=== PATIENT | female | born 1975 | race Caucasian/White ===

== ENCOUNTER 2024-05-18 16:49 | Emergency (ER) | payer OTHER, SELFPAY ==
--- NOTE | ~2024-05-18 | XR_ITS ---
XR chest 2V DATE: 05/18/2024 18:19 INDICATION: Productive cough TECHNIQUE: 2 views COMPARISON: None FINDINGS: Heart size is within normal range. No hilar or mediastinal enlargement. No pulmonary infiltrate or consolidation, pleural effusion or pulmonary vascular congestion or pneumo thorax is detected. Degenerative spurring of the thoracic and lumbar spine. IMPRESSION: No active cardiopulmonary disease Reviewed, dictated and finalized at location A.
[2024-05-18 17:28] VITALS: BP 142/65; PULSE 77; RESP 18; TEMP 37.4; O2SAT 99
--- NOTE | 2024-05-18 18:05 | ED.GENADULT ---
HPI - General Adult General Chief complaint: Upper Respiratory Infection Stated complaint: Cough/Sinus Source: patient Mode of arrival: ambulatory Limitations: no limitations History of Present Illness HPI narrative: Patient presents for evaluation of sick symptoms since the end of March. She initially she had some sinus congestion. She then developed postnasal drainage and a cough. Drainage is now thick yellow and green. She saw her PCP re: her symptoms. She was tested for mono, which resulted as negative. Her symptoms persisted so she was seen there again last Sunday. She was given some type of injection and placed on azithromycin, which she is currently taking. She states her symptoms are not improving. Her cough is productive of clear/yellow sputum. She states her chest feels heavy. Denies SOB per se. She has experienced hot flashes and chills. No nausea, vomiting or diarrhea. Her grandchild had strep around the time her symptoms started. She has been taking tylenol, ibuprofen and mucinex for her symptoms. She does not smoke. Related Data Home Medications Medication Instructions Recorded Confirmed guaifenesin 1,200 mg tablet, 1,200 mg PO BID 05/16/24 05/18/24 extended release 12 hr (Mucinex) Allergies Allergy/AdvReac Type Severity Reaction Status Date / Time No Known Allergies Allergy Verified 05/18/24 16:53 Review of Systems Review of Systems: CONSTITUTIONAL: Denies fever, chills, or sweats. EYES: Denies visual changes, redness, or discharge. ENT: Reports sinus congestion and postnasal drainage which is thick, yellow and green. CARDIOVASCULAR: Denies chest pain, palpitations, or edema. RESPIRATORY: reports cough and chest heaviness. Denies shortness of breath. GASTROINTESTINAL: Denies abdominal pain, nausea, vomiting, or diarrhea. GENITOURINARY: Denies dysuria or hematuria. SKIN: Denies rash or itching. MUSCULOSKELETAL: Denies back pain, joint pain, or myalgia. NEUROLOGIC: Denies headache, numbness, dizziness, or weakness. PSYCHIATRIC: Denies anxiety or depression. [facility] Past Medical History Medical History BMI 50.0-59.9, adult Hypertension Surgical History Surgical History No pertinent past surgical history Family History Family History Mother Family history non-contributory Social History Social History Smoking status: Never smoker Second hand tobacco smoke exposure: Yes Alcohol intake: current Drinks per week: 1 Substance use: never Substance use type: does not use Lack of Transportation: No Lack of Food: Never True Current Housing: I Have Housing Concerned About Future Housing: No Difficulty Paying Gas/Electric Bills: No Difficulty Paying for Meds: No Currently Unemployed: No Education: Bachelor's Degree Difficulty w/ Childcare or Family Care: No Living arrangements: with family Occupation/Education: occupation 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 HEAD: Normocephalic, atraumatic. EYES: PERRLA and EOMI. ENT: Nares clear, no rhinorrhea or epistaxis. Mucous membranes moist. Oropharynx without tonsillar hypertrophy exudate or other lesions. Bilateral TMs pearly ramos nonbulging NECK: Supple. No adenopathy or masses. No carotid bruits or JVD CHEST: Diminished breath sounds bilaterally HEART: Regular rate and rhythm. No murmur heard. Normal peripheral pulses. ABDOMEN: Soft, nontender, nondiste
== END 2024-05-18 18:51 | disposition home or self-care (01) ==
PROVIDERS: Emergency Provider Nurse Practitioner; PCP Family Medicine
DX: J32.9 Chronic sinusitis, unspecified (principal); I10 Essential (primary) hypertension
CPT/HCPCS: 71046; 99213; G0463

== ENCOUNTER 2025-05-22 08:57 | Outpatient (CLI) | payer OTHER, SELFPAY ==
--- NOTE | ~2025-05-22 | MMUS_ITS ---
EXAMINATION: MM diagnostic juan BI w sera, US breast RT limited INDICATION: 49-year old female; BI-RADS 3, short-term follow-up probably benign right breast finding initially evaluated on 09/01/2019. COMPARISON: 09/01/2019 and 08/11/2019 TECHNIQUE: Digital breast tomosynthesis True lateral, CC and MLO views of the BILATERAL breast were obtained with computer-aided detection to assist in interpretation of the study. MAMMOGRAM FINDINGS: There are scattered areas of fibroglandular density. The focal asymmetry of concern in the upper outer right breast at posterior third redemonstrated is unchanged. No new suspicious mass, calcification or architectural distortion to suggest malignancy in either breast. RIGHT BREAST ULTRASOUND FINDINGS: Targeted evaluation of the area of concern was completed. No suspicious solid or cystic masses seen. The previously reported lesion at 10:00 is not visualized on this current examination. IMPRESSION: Benign RIGHT breast mass is unchanged and has demonstrated over 5 years of stability. No mammographic evidence of malignancy in either breast. RECOMMENDATION: Annual screening mammography. BI-RADS 2, BENIGN Reviewed, dictated and finalized at location C. IMPRESSION: Benign RIGHT breast mass is unchanged and has demonstrated over 5 years of stab ility. No mammographic evidence of malignancy in either breast. RECOMMENDATION: Annual screening mammography. BI-RADS 2, BENIGN
== END 2025-05-22 08:58 | disposition home or self-care (01) ==
LOC: MICIMG 08:58
PROVIDERS: PCP Family Medicine; Visit Provider Nurse Practitioner Family
DX: N63.15 Unspecified lump in the right breast, overlapping quadrants (principal)
CPT/HCPCS: 76642; 77062; 77066; G0279